=== PATIENT | female | born 1970 | race Caucasian/White ===

== ENCOUNTER 2020-02-24 18:48 | Emergency (ER) | payer OTHER ==
[~2020-02-24] VITALS: Ht 170.2 cm; Wt 196.4 kg
--- NOTE | 2020-02-24 19:15 | NUR ---
BIB ra c/o weakness x 1 month progressing with a glf today. PT PRESENTS WITH BILATERAL LOWER EXTREMITY ULCERS. DENIES PAIN, SOB, DIZZINESS, WEAKNESS, N/V, BLURRY VISION. NO ACUTE DISTRESS NOTED. RR EVEN AND UNLABORED ON RA. ON MONITOR AND READY FOR EVAL.
--- NOTE | 2020-02-24 19:21 | NUR ---
SENIOR TECHNICAL MANAGER AT BEDSIDE
--- NOTE | 2020-02-24 19:29 | NUR ---
PT DESATTING AT 79%. PLACED ON 3L VIA NC. NOW 100%
[2020-02-24] MEDS ORDERED: VANCOMYCIN 1 GM in IV D5W 250 ML IV ONE (20:30)
[2020-02-24] MEDS ORDERED: PIPERACILLIN /TAZOBACTAM 3.375 G in IV D5W 50 ML IV ONE (20:30)
--- NOTE | 2020-02-24 20:45 | NUR ---
M/S 316-1
--- NOTE | 2020-02-24 20:45 | NUR ---
PT IS HARD STICK. UNABLE TO GET BLOOD AT THIS TIME. LAB WILL SEND TECH.
--- NOTE | 2020-02-24 20:45 | NUR ---
AMY RDZ EPRP. DR. David PEREA
[2020-02-24] MEDS ORDERED: VANCOMYCIN 1 GM VIAL ONE (20:50)
[2020-02-24] MEDS ORDERED: PIPERACILLIN /TAZOBACTAM 3.375 G VIAL IV ONE (20:50)
--- NOTE | 2020-02-24 20:52 | NUR ---
ER DOC ON PHONE WITH [facility]
[2020-02-24 21:10] LABS: CALCIUM, SERUM 8.3 mg/dL (8.5-10.1); CREATININE 0.8 mg/dL (0.6-1.3)
--- NOTE | 2020-02-24 21:24 | NUR ---
CRIME SCENE EXAMINER AT BEDSIDE FOR BLOOD DRAW
--- NOTE | 2020-02-24 21:30 | NUR ---
MANAGER CHEMICAL AT BEDSIDE
--- NOTE | 2020-02-24 21:54 | NUR ---
PAGED DAVE TO READ IMAGING
[2020-02-24 22:04] LABS: HEMATOCRIT 29 % (33-45); HEMOGLOBIN 7.6 g/dL (11.5-14.8); MEAN CORPUSCULAR VOLUME 66 fL (82-100); RED BLOOD CELL COUNT(AUTO) 4.38 MIL/uL (4.0-5.2); WHITE BLOOD COUNT (AUTO) 18.3 K/uL (4.3-11.0)
[2020-02-24 22:05] LABS: BASOPHILS % (AUTO) 0.2 % (0.0-2.0); EOSINOPHILS % (AUTO) 0.2 % (0.0-6.0); LYMPHOCYTES # (AUTO) 1.5 /CMM (0.8-4.8); LYMPHOCYTES % (AUTO) 8.3 % (20.0-44.0); MEAN CORPUSCULAR HGB CONC 26 g/dl (31.0-36.0); MONOCYTES # (AUTO) 1.1 /CMM (0.1-1.30); MONOCYTES % (AUTO) 5.8 % (2.0-12.0); NEUTROPHILS # (AUTO) 15.7 /CMM (1.8-8.9); NEUTROPHILS % (AUTO) 85.5 % (43.0-81.0); PLATELET COUNT (AUTO) 361 /CMM (150-450)
[2020-02-24 22:09] LABS: ABG BASE EXCESS 4.3 mmol/L; ABG OXYGEN SATURATION 93.9 % (92.0-98.5); ABG PCO2 67.7 mmHg (35.0-45.0); ABG PO2 81.8 mmHg (75.0-100.0); COHb 1.9 % (0.5-1.5); MetHb 0.5 % (0.0-1.5); O2Hb 91.6 % (94.0-97.0); SITE, ABG Left Radial; VENT MODE, BG 2L N/C
[2020-02-24 22:30] LABS: LYMPHOCYTES % (MANUAL) 5 % (16-48); MONOCYTES % (MANUAL) 3 % (0-11.0); NEUTROPHILS % (MANUAL) 92 (42-76)
[2020-02-24] MEDS ORDERED: POTASSIUM CHLORIDE 20 MEQ TAB.PRT.SR PO ONE ×2 (22:30→22:45)
[2020-02-24] MEDS ORDERED: FUROSEMIDE 40 MG/4 ML VIAL IV ONE (22:30)
[2020-02-24] MEDS ORDERED: NITROGLYCERIN PACKET 1 GM PACKET TD ONE (22:30)
[2020-02-24] MEDS ORDERED: FUROSEMIDE 40 MG/4 ML VIAL ONE (22:44)
[2020-02-24] MEDS ORDERED: NITROGLYCERIN PACKET 1 GM PACKET ONE (22:45)
--- NOTE | 2020-02-25 00:12 | NUR ---
RECEIVED CALL FROM [facility]. [address] [facility] [facility] [address] Pam [facility] ETA [id number]
[2020-02-25 01:01] VITALS: BP 153/93
--- NOTE | 2020-02-25 01:05 | NUR ---
REPORT GIVEN TO JENN PATINO OF [facility].
--- NOTE | 2020-02-25 01:10 | NUR ---
REPORT GIVEN TO EMS FOR PT TRANSFER TO [facility].
== END 2020-02-25 01:36 | disposition short-term general hospital (02) ==
LOC: ER 18:53
DX: L03.116 Cellulitis of left lower limb (principal); L03.115 Cellulitis of right lower limb; Z90.89 Acquired absence of other organs
CPT/HCPCS: 36415; 36600; 71045; 80048; 83605; 83880; 85025; 85730; 87040 ×2; 93970; 96365; 96368; 96375; 99285; J1940; J2543 ×2; J3370; J7060